=== PATIENT | female | born 1970 | race Caucasian/White ===

== ENCOUNTER → 2021-09-05 | Outpatient (CLI) | payer BC ==
[2021-09-05 12:46] LABS: Basophils # (A) 0.1 k/uL (0-0.2); Basophils % (A) 1 %; Eosinophils # (A) 0.3 k/uL (0-0.7); Eosinophils % (A) 5 %; HGB 13.2 gm/dL (11.4-16.0); Lymphocytes # (A) 1.7 k/uL (1.0-4.8); Lymphocytes % (A) 23 %; MCH 30.9 pg (25.0-35.0); MCHC 32.9 g/dL (31.0-37.0); MCV 93.9 fL (80.0-100.0); Monocytes # (A) 0.4 k/uL (0-1.0); Monocytes % (A) 6 %; Neutrophils # (A) 4.7 k/uL (1.3-7.7); Neutrophils % (A) 65 %; Platelet Count 232 k/uL (150-450); RBC 4.26 m/uL (3.80-5.40); RDW 12.3 % (11.5-15.5); WBC 7.3 k/uL (3.8-10.6)
== END | disposition home or self-care (01) ==
LOC: LABPAT 11:19
PROVIDERS: ATTEND Obstetrics & Gynecology
DX: Z01.818 Encounter for other preprocedural examination (principal); I49.1 Atrial premature depolarization; R00.1 Bradycardia, unspecified
CPT/HCPCS: 36415; 85025; 93005

== ENCOUNTER 2021-09-15 07:00 | Day surgery (SDC) | payer BC ==
[2021-09-13 16:05] VITALS: BMI 25.0
[~2021-09-15 07:00] MED LIST: DEXAMETHASONE SOD PHOSPHATE 4 MG/ML 1 ML VIAL IV ONE; HYDROmorphone 0.5 MG/0.5 ML SYRINGE IVP PRN; LACTATED RINGERS 1,000 ML IV SCH; MIDAZOLAM 2 MG/2 ML VIAL IV PRN; ONDANSETRON 4 MG/2 ML VIAL IVP ONE; Pre Op ABX Message 1 EACH MISC MISCELLANE ONE; SCOPOLAMINE 1.5MG/72HR PATCH TRANSDERM ONE
--- NOTE | 2021-09-15 07:34 | P.HPOB ---
History of Present Illness H&P Date: 09/15/21 Chief Complaint: menorrhagia 51 year old presents for D&C hysteroscopy and endometrial ablation with NovaSure. Review of Systems All systems: negative Constitutional: Denies chills, Denies fever Eyes: denies blurred vision, denies pain Ears, nose, mouth and throat: Denies headache, Denies sore throat Cardiovascular: Denies chest pain, Denies shortness of breath Respiratory: Denies cough Gastrointestinal: Denies abdominal pain, Denies diarrhea, Denies nausea, Denies vomiting Genitourinary: Denies dysuria, Denies hematuria Musculoskeletal: Denies myalgias Integumentary: Denies pruritus, Denies rash Neurological: Denies numbness, Denies weakness Psychiatric: Denies anxiety, Denies depression Endocrine: Denies fatigue, Denies weight change Past Medical History Additional Past Medical History / Comment(s): heavy, frequent periods History of Any Multi-Drug Resistant Organisms: None Reported Past Surgical History: Tubal Ligation Past Anesthesia/Blood Transfusion Reactions: No Reported Reaction Smoking Status: Former smoker Medications and Allergies Home Medications Medication Instructions Recorded Confirmed Type Ibuprofen 200 - 400 mg PO Q6H PRN 09/13/21 09/13/21 History Multivitamins, Thera [Multivitamin 1 tab PO DAILY 09/13/21 09/13/21 History (formulary)] [place]-3 Fatty Acids/Fish Oil [Fish 1 each PO DAILY 09/13/21 09/13/21 History Oil 1,000 mg Softgel] Turmeric Root Extract [Turmeric] 500 mg PO DAILY 09/13/21 09/13/21 History Allergies Allergy/AdvReac Type Severity Reaction Status Date / Time No Known Allergies Allergy Verified 09/14/21 12:38 Exam Osteopathic Statement: *. No significant issues noted on an osteopathic st ructural exam other than those noted in the History and Physical/Consult. Vital Signs Temp Pulse Resp BP Pulse Ox 09/15/21 07:26 97.5 F L 76 16 139/87 100 Intake and Output 09/14/21 09/15/21 09/15/21 22:59 06:59 14:59 Other: Weight 64.4 kg Heart: Regular rate and rhythm Lungs: Clear to auscultation bilaterally Abdomen: Soft, nontender Extremities: Negative Homans sign Assessment and Plan (1) Menorrhagia Current Visit: Yes Status: Acute Code(s): N92.0 - EXCESSIVE AND FREQUENT MENSTRUATION WITH REGULAR CYCLE SNOMED Code(s): 370794449 Plan: 1. D&C hysteroscopy and endometrial ablation with NovaSure
[2021-09-15] MEDS ORDERED: PROPOFOL 10 MG/ML 20 ML VIAL IV ONE (08:23)
[2021-09-15] MEDS ORDERED: LIDOCAINE 1% INJ 10MG/ML (20 ML MDV) ONE (08:23)
[2021-09-15] MEDS ORDERED: fentaNYL (PF) 50 MCG/ML 2 ML AMP ONE (08:23)
[2021-09-15] MEDS ORDERED: KETOROLAC 15 MG/ML 1 ML VIAL ONE (08:23)
[2021-09-15] MEDS ORDERED: MIDAZOLAM 2 MG/2 ML VIAL ONE (08:23)
--- NOTE | 2021-09-15 08:54 | P.OP ---
Date of Procedure: 09/15/21 Preoperative Diagnosis: 1. menorrhagia Postoperative Diagnosis: 1. menorrhagia Procedure(s) Performed: D&C, hysteroscopy, endometrial ablation was NovaSure Anesthesia: MAC Surgeon: Nikole Hoskins Estimated Blood Loss (ml): 2 IV fluids (ml): 500 Urine output (ml): 120 Pathology: other (Endometrial curettings) Condition: stable Disposition: PACU Operative Findings: Uterus sounded to 7 cm. Cavity length 5 cm, width 4.3 cm power 120 W for 72 seconds. Adequate ablation after NovaSure. Description of Procedure: Patient was taken the operating room where general anesthesia was obtained without difficulty. She is prepped and draped in normal sterile fashion dorsal lithotomy position was with significant concerns. Restrictive all urine. Weighted place and the Charnley and trailblazer was grasped with single-tooth tenaculum. The uterus sounded to 7 cm and the cervix 102 cm making Revealing 5 cm. Cervix is dilated to #8 Hegar dilator. Hysteroscopy was performed and both ostia visualized. Smooth contour of the uterus. Sharp curet was used to gently. A mature curettings. No pressure was introduced with the cannula to 5 cm, width 4.37 m per 120 W and time of ablation 72 seconds. The NovaSure instrument was removed and a hysteroscopy was again performed. Adequate ablation was noted. All instrument removed from the vagina. Patient on procedure well, sponge and instrument counts correct 2. She was taken to recovery in stable condition.
--- NOTE | 2021-09-15 08:58 | P.OP ---
Date of Procedure: 09/15/21 Preoperative Diagnosis: 1. menorrhagia Postoperative Diagnosis: 1. menorrhagia Procedure(s) Performed: D&C, hysteroscopy, endometrial ablation with NovaSure Anesthesia: MAC Surgeon: Nikole Hoskins Estimated Blood Loss (ml): 2 IV fluids (ml): 500 Urine output (ml): 120 Pathology: other (Other major curettings) Condition: stable Disposition: PACU Operative Findings: Uterus sounded to 7 cm. Cavity length was 5 cm, width 4.3 cm, power 120 W, time of ablation 72 seconds. Adequate ablation after NovaSure. Description of Procedure: Patient is taken the operating room where general anesthesia was obtained without difficulty. She was prepped and draped in normal sterile fashion dorsal lithotomy position, legs placed in the candy cane stirrups. Bladder was drained of all urine. Weighted speculum placed in the vagina and the anterior lip the cervix was grasped with serial tooth tenaculum. The uterus sounded to 7 cm and the cervix under 2 cm making the cavity length 5 cm. The cervix was dilated to #8 Hegar dilator. Hysteroscopy was then performed. Both ostia were visualized and there was a smooth contour of the uterus. Sharp curet was then gently used to obtain endometrial curettings. The NovaSure was introduced into the uterus with a cavity length of 5 cm, width 4.3 cm. after cavity assessment was passed, the time of ablation was 72 seconds at 120 W. Hysteroscopy was again performed and adequate ablation was noted. All instruments removed from the vagina. Patient tolerated the procedure well, sponge and instrument counts were correct 2 and she was taken to recovery in stable condition.
[2021-09-15 09:03] VITALS: TEMP 96.8
[2021-09-15] MEDS ORDERED: LACTATED RINGERS 1,000 ML IV ONE (09:23)
[2021-09-15 09:31] VITALS: RESP 16
[2021-09-15 10:38] VITALS: BP 159/73
[2021-09-15 11:04] VITALS: PULSE 49
== END 2021-09-15 11:43 | disposition home or self-care (01) ==
LOC: OR 07:00 → MERGE 08:15 → OR 11:43
PROVIDERS: ATTEND Obstetrics & Gynecology
DX: N92.0 Excessive and frequent menstruation with regular cycle (principal); Z98.51 Tubal ligation status; Z87.891 Personal history of nicotine dependence; N84.0 Polyp of corpus uteri
CPT/HCPCS: 81025; 88305; 58563; J2250; J1100; J2405; J2001; J3010; J1885; J2704; J1790

== ENCOUNTER → 2023-07-04 | Outpatient (CLI) | payer SELFPAY ==
[2023-07-04 20:32] LABS: ALT 21 U/L (8-44); AST 22 U/L (13-35); Albumin 4.8 d/dL (3.8-4.9); Alkaline Phosphatase 59 U/L (41-126); BUN/Creat Ratio 18.11 Ratio (12.00-20.00); Blood Urea Nitrogen 16.3 mg/dL (9.0-27.0); Calcium 9.8 mg/dL (8.7-10.3); Carbon Dioxide 24.9 mmol/L (21.6-31.8); Chloride 105 mmol/L (96-109); Glucose 88 mg/dL (70-110); Potassium 4.2 mmol/L (3.5-5.5); Sodium 140 mmol/L (135-145); Total Bilirubin 0.3 mg/dL (0.3-1.2); Total Protein 6.8 d/dL (6.2-8.2)
[2023-07-04 21:19] LABS: HCT 41.3 % (37.2-46.3); HGB 14.1 d/dL (12.0-15.0); MCH 31.3 pg (27.0-32.0); MCHC 34.1 d/dL (32.0-37.0); MCV 91.8 FL (80.0-97.0); Mean Platelet Volume 12.9 FL (9.5-12.2); NRBC Per 100 WBC 0 X 10*3/uL (0.00-0.01); Platelet Count 229 X 10*3/uL (140-440); RDW 12.2 % (11.5-14.5); WBC 8.98 X 10*3/uL (4.50-10.00)
[2023-07-04 22:20] LABS: Appearance,Urine Clear (Clear); Bilirubin,Urine Negative (Negative); Blood,Urine Negative (Negative); Color,Urine Yellow (Yellow); Ketones,Urine Trace (Negative); Nitrite,Urine Negative (Negative); PH, Urine 5.5; Specific Gravity,Urine 1.025 (1.001-1.030); Urobilinogen,Urine 0.2 E.U./DL
== END | disposition home or self-care (01) ==
LOC: LABPAT 15:38
PROVIDERS: ATTEND Urology
DX: Z01.812 Encounter for preprocedural laboratory examination (principal); N81.9 Female genital prolapse, unspecified; N39.3 Stress incontinence (female) (male); R35.0 Frequency of micturition
CPT/HCPCS: 80053; 81003; 85027; 87086

== ENCOUNTER 2023-07-10 13:23 | Day surgery (SDC) | payer BC ==
--- NOTE | 2023-07-09 09:16 | P.GSHP ---
History of Present Illness H&P Date: 07/09/23 53-year-old female with stress urinary incontinence and a grade 1-2 cystocele comes for a pubovaginal sling (lynx) and anterior repair. She has a classic stress urinary incontinence. She wears 4-5 pads per day. She has leaks with coughing lifting sneezing and exercise. There've been no urinary tract infections. She has had a NovaSure ablation and a D&C. On examination she has a mobile urethra with mild cystocele. She has been given treatment options. She has failed calyx her size. She comes for a pubovaginal sling risks and complications outlined including infection bleeding pain injury retention dyspareunia erosion the mesh controversy. - Constitutional Constitutional: Denies chills, Denies fever - EENT Eyes: denies blurred vision, denies pain Ears, nose, mouth and throat: Denies headache, Denies sore throat - Cardiovascular Cardiovascular: Denies chest pain, Denies shortness of breath - Respiratory Respiratory: Denies cough, Denies 7 - Gastrointestinal Gastrointestinal: Denies abdominal pain, Denies diarrhea, Denies nausea, Denies vomiting - Genitourinary (Female) Genitourinary: Denies dysuria, Denies hematuria - Genitourinary (Male) Genitourinary: Denies dysuria, Denies hematuria - Musculoskeletal Musculoskeletal: Denies myalgias - Integumentary Integumentary: Denies pruritus, Denies rash - Neurological Neurological: Denies numbness, Denies weakness - Psychiatric Psychiatric: Denies anxiety, Denies depression - Endocrine Endocrine: Denies fatigue, Denies weight change Past Medical History Additional Past Medical History / Comment(s): urinary incontinence which causes skin irritation @times-nothing currently History of Any Multi-Drug Resistant Organisms: None Reported Past Surgical History: Tubal Ligation, Uterine Ablation Additional Past Surgical History / Comment(s): D & C Past Anesthesia/Blood Transfusion Reactions: No Reported Reaction Additional Past Anesthesia/Blood Transfusion Reaction / Comment(s): slow to wake up after ablation Smoking Status: Former smoker Medications and Allergies Home Medications Medication Instructions Recorded Confirmed Type Multivitamins, Thera [Multivitamin 1 tab PO DAILY 09/13/21 07/02/23 History (formulary)] [place]-3 Fatty Acids/Fish Oil [Fish 1 each PO DAILY 09/13/21 07/02/23 History Oil 1,000 mg Softgel] Turmeric Root Extract [Turmeric] 500 mg PO DAILY 09/13/21 07/02/23 History Clotrimazole/Betameth Cream 1 applic TOPICAL DIRECTED PRN 07/03/23 07/03/23 History [Lotrisone] Cyanocobalamin (Vitamin B-12) 1,000 mcg PO DAILY 07/03/23 07/03/23 History [Vitamin B-12] Elderberry Fruit [Elderberry] 350 mg PO DAILY 07/03/23 07/03/23 History Allergies Allergy/AdvReac Type Severity Reaction Status Date / Time No Known Allergies Allergy Verified 07/02/23 16:05 Surgical - Exam - General well developed, well nourished, no distress - Eyes normal ocular movement, no icteric - ENT no hearing loss, no congestion - Neck no masses, trachea midline - Respiratory normal respiratory effort, clear to auscultation - Abdomen Abdomen: soft, non tender, no guarding, no rigid, no rebound - Genitourinary Hypermobile urethra with stress incontinence, grade 1-2 cystocele - Integumentary no rash, no abnormal pigmentation - Neurologic no disoriented, no combative - Psychiatric oriented to time, oriented to person, oriented to place, speech is normal, memory intact Assessment and Plan Assessment: Impression; LIANE, cystocele Plan: pubovaginal sling, anterior repair.
[~2023-07-10 13:23] MED LIST changes: +AMPICILLIN 1,000 MG in SODIUM CHLORIDE 0.9% 50 ML IVPB PRN; +GENTAMICIN 80 MG in SODIUM CHLORIDE 0.9% 100 ML IVPB PRN; +LIDOCAINE 1% (10MG/ML) FOR IV START INTRADERMA PRN; -MIDAZOLAM 2 MG/2 ML VIAL IV PRN; -Pre Op ABX Message 1 EACH MISC MISCELLANE ONE; -SCOPOLAMINE 1.5MG/72HR PATCH TRANSDERM ONE; +droPERidol 5 MG/2 ML VIAL IVP ONE
[2023-07-10] MEDS ORDERED: SCOPOLAMINE 1 MG/72 HR PATCH TRANSDERM ONE (14:10)
[2023-07-10] MEDS ORDERED: MIDAZOLAM 2 MG/2 ML VIAL ONE (15:53)
[2023-07-10] MEDS ORDERED: GLYCOPYRROLATE 0.2 MG/ML 2 ML VIAL ONE (15:53)
[2023-07-10] MEDS ORDERED: HYDROmorphone (PF) 1 MG/ML ONE (15:53)
[2023-07-10] MEDS ORDERED: fentaNYL (PF) 50 MCG/ML 2 ML AMP ONE (15:53)
[2023-07-10] MEDS ORDERED: SUCCINYLCHOLINE CHLORIDE 200 MG/10 ML VIAL IV ONE (15:53)
[2023-07-10] MEDS ORDERED: PROPOFOL 10 MG/ML 20 ML VIAL IV ONE (15:53)
[2023-07-10] MEDS ORDERED: VASOPRESSIN 20 UNIT/ML 1 ML VIAL SQ ONE (16:22)
[2023-07-10] MEDS ORDERED: BACITRACIN ZINC 500 UNIT/GM OINT 28.4 GM TUBE TOPICAL ONE (16:32)
[2023-07-10] MEDS ORDERED: LACTATED RINGERS 1,000 ML IV ONE (16:39)
[2023-07-10] MEDS ORDERED: ONDANSETRON 4 MG/2 ML VIAL IVP PRN (16:41)
[2023-07-10] MEDS ORDERED: KETOROLAC 15 MG/ML 1 ML VIAL IVP PRN (16:41)
[2023-07-10] MEDS ORDERED: HYDROcodone/APAP 5-325MG 1 EACH TAB PO PRN (16:44)
[2023-07-10] MEDS ORDERED: DEXTROSE 5%-0.45% NACL 1,000 ML IV SCH (16:45)
--- NOTE | 2023-07-10 16:49 | P.OP ---
Date of Procedure: 07/10/23 Preoperative Diagnosis: Stress urinary incontinence cystocele Postoperative Diagnosis: Same Procedure(s) Performed: Pubovaginal sling (lynx), cystoscopy, anterior repair Anesthesia: ITZELA Surgeon: Carlos Purvis Estimated Blood Loss (ml): 100 Pathology: none sent Condition: stable Disposition: PACU Indications for Procedure: Patient is 53. She has documented stress incontinence. She is a small cystocele. She comes for pubovaginal sling for her stress incontinence and a cystocele repair Description of Procedure: Patient brought operating suite. She is given a general anesthetic. He's placed lithotomy position with a sterile prep and drape. The labia are sewn laterally with 2-0 silk. All he Is introduced sterilely. The anterior vaginal mucosa was elevated off the submucosa with 10 mL of a mixture of 20 g of Pitressin and 100 mL of saline. A midline suburethral incision is made. Dissect lateral the bladder neck bilaterally. The cystocele is dissected off vagina and reduced. I then make 2 incisions at the corner the pubis. I passed the sling introducers retropubically into the vaginal space bilaterally. I then perform cystoscopy to make sure there is no injury to the bladder and there is none. Amaya catheters replaced. The Lynx graft is attached to the introducers and pull back suprapubically. It lay at the bladder neck nicely. I then close the cystocele with 2-0 Vicryl approximating the perivaginal tissue bilaterally. I then closed the vagina with 4-0 Vicryl. The redundant sheathing on the graft was pulled off. The redundant graft was excised at the appropriate incisions. The suprapubic incision was closed with 4-[address] The urine and Amaya catheters irrigated and is clear. The patient is awakened and returned recovery room good condition. Blood loss is undergone a 50 mL. She tolerated procedure well be placed in the hospital postoperatively.
[2023-07-11] MEDS ORDERED: IBUPROFEN 600 MG TAB PO PRN (15:23)
[2023-07-11 16:11] VITALS: BP 137/88; PULSE 77; RESP 18; TEMP 98.6
== END 2023-07-11 16:30 | disposition home or self-care (01) ==
LOC: OR 13:23 → 4FBP 16:55 → OR 07-11 16:30
PROVIDERS: ATTEND Urology
DX: N81.10 Cystocele, unspecified (principal); N39.3 Stress incontinence (female) (male); Z79.1 Long term (current) use of non-steroidal anti-inflammatories (NSAID); Z87.891 Personal history of nicotine dependence; Z78.9 Other specified health status
CPT/HCPCS: 57288; 57240; C1771; J2250; J0330; J1100; J2405; J3010; J1580; J0290; J1170; J1885; J2704

== ENCOUNTER 2023-07-24 08:51 | Day surgery (SDC) | payer BC ==
--- NOTE | 2023-07-23 12:29 | P.GSHP ---
History of Present Illness H&P Date: 07/23/23 53-year-old female who approximately 10 days ago underwent a pubovaginal sling for stress urinary incontinence with an anterior repair has had problems urinating postoperatively with retention and incomplete urination. She is otherwise healed nicely. She comes for loosening of her pubovaginal sling. This and complications including infection of the graft recurrence of her stress incontinence continued retention and been explained and understood and accepted - Constitutional Constitutional: Denies chills, Denies fever - EENT Eyes: denies blurred vision, denies pain Ears, nose, mouth and throat: Denies headache, Denies sore throat - Cardiovascular Cardiovascular: Denies chest pain, Denies shortness of breath - Respiratory Respiratory: Denies cough, Denies 7 - Gastrointestinal Gastrointestinal: Denies abdominal pain, Denies diarrhea, Denies nausea, Denies vomiting - Genitourinary (Female) Genitourinary: Denies dysuria, Denies hematuria - Genitourinary (Male) Genitourinary: Denies dysuria, Denies hematuria - Musculoskeletal Musculoskeletal: Denies myalgias - Integumentary Integumentary: Denies pruritus, Denies rash - Neurological Neurological: Denies numbness, Denies weakness - Psychiatric Psychiatric: Denies anxiety, Denies depression - Endocrine Endocrine: Denies fatigue, Denies weight change Past Medical History Additional Past Medical History / Comment(s): urinary incontinence which causes skin irritation @times-nothing currently now having urine retention after pubo/vag sling britney has a catheter in place History of Any Multi-Drug Resistant Organisms: None Reported Past Surgical History: Tubal Ligation, Uterine Ablation Additional Past Surgical History / Comment(s): D & C, pubo vaginal sling Past Anesthesia/Blood Transfusion Reactions: No Reported Reaction, Postoperative Nausea & Vomiting (PONV) Additional Past Anesthesia/Blood Transfusion Reaction / Comment(s): slow to wake up after ablation, after sling surg had low temp, shivering,low heart rate, nausea Smoking Status: Former smoker - Past Family History Father Family Medical History: Chest Pain / Angina, Congestive Heart Failure (CHF), Diabetes Mellitus Medications and Allergies Home Medications Medication Instructions Recorded Confirmed Type Multivitamins, Thera [Multivitamin 1 tab PO DAILY 09/13/21 07/22/23 History (formulary)] [place]-3 Fatty Acids/Fish Oil [Fish 1 each PO DAILY 09/13/21 07/22/23 History Oil 1,000 mg Softgel] Turmeric Root Extract [Turmeric] 500 mg PO DAILY 09/13/21 07/22/23 History Clotrimazole/Betameth Cream 1 applic TOPICAL DIRECTED PRN 07/03/23 07/22/23 History [Lotrisone] Cyanocobalamin (Vitamin B-12) 1,000 mcg PO DAILY 07/03/23 07/22/23 History [Vitamin B-12] Elderberry Fruit [Elderberry] 350 mg PO DAILY 07/03/23 07/22/23 History Ketorolac [Toradol] 10 mg PO Q6HR PRN #10 tab 07/11/23 07/22/23 Rx ALPRAZolam [Xanax] 0.25 mg PO Q6H PRN 07/22/23 07/22/23 History Allergies Allergy/AdvReac Type Severity Reaction Status Date / Time No Known Allergies Allergy Verified 07/22/23 14:41 Surgical - Exam - General well developed, well nourished, no distress - Eyes normal ocular movement, no icteric - ENT no hearing loss, no congestion - Neck no masses, trachea midline - Respiratory normal respiratory effort, clear to auscultation - Abdomen Abdomen: soft, non tender, no guarding, no rigid, no rebound - Integumentary no rash, no abnormal pigmentation - Neurologic no disoriented, no combative - Psychiatric oriented to time, oriented to person, oriented to place, speech is normal, memory intact Assessment and Plan Assessment: Impression: Urine retention status post pubovaginal sling with anterior repair. Recommendations: Loosening of pubovaginal sling with cystoscopy
[~2023-07-24 08:51] MED LIST changes: -GENTAMICIN 80 MG in SODIUM CHLORIDE 0.9% 100 ML IVPB PRN; +GENTAMICIN IN NACL ISO-OSM PMX 80 MG in SALINE 1 100ML.BAG IVPB PRN; -LIDOCAINE 1% (10MG/ML) FOR IV START INTRADERMA PRN; -droPERidol 5 MG/2 ML VIAL IVP ONE
[2023-07-24] MEDS ORDERED: LIDOCAINE 1% (10MG/ML) FOR IV START INTRADERMA ONE (09:41)
[2023-07-24] MEDS ORDERED: SCOPOLAMINE 1 MG/72 HR PATCH TRANSDERM ONE (10:02)
[2023-07-24] MEDS ORDERED: fentaNYL (PF) 50 MCG/ML 2 ML AMP ONE (10:43)
[2023-07-24] MEDS ORDERED: KETOROLAC 15 MG/ML 1 ML VIAL ONE (10:43)
[2023-07-24] MEDS ORDERED: MIDAZOLAM 2 MG/2 ML VIAL ONE (10:43)
[2023-07-24] MEDS ORDERED: LIDOCAINE 2% INJ 20 MG/ML (2 ML VIAL) ONE (10:43)
[2023-07-24] MEDS ORDERED: PROPOFOL 10 MG/ML 20 ML VIAL IV ONE (10:43)
[2023-07-24] MEDS ORDERED: LIDOCAINE 1%-EPI 1:100,000 50 ML VIAL SQ ONE (11:01)
[2023-07-24 11:29] VITALS: TEMP 97.1
--- NOTE | 2023-07-24 11:30 | P.OP ---
Date of Procedure: 07/24/23 Preoperative Diagnosis: Urine retention post pubovaginal sling Postoperative Diagnosis: Same Procedure(s) Performed: Loosening a pubovaginal sling Anesthesia: AHLEY Surgeon: Carlos Purvis Estimated Blood Loss (ml): 5 Pathology: none sent Condition: stable Disposition: PACU Indications for Procedure: Patient is 10 days post pubovaginal sling and anterior repair. She has had persistent incomplete bladder and in. She comes for loosening for her pubovaginal sling Description of Procedure: The patient is brought to the operating suite. She is given a general anesthetic. She's been given preoperative antibiotics. She's placed lithotomy position with a sterile prep and drape. The Amaya catheter previously been removed. A vaginal speculum was introduced into the vagina. I used 2% Xylocaine with epinephrine to elevate submucosa off the mucosa. The previous midline vaginal stitch is identified and removed. The vagina is open. Sling is identified and is very tight against the proximal urethra. With a hemostat I grasp it and pull it forward with difficulty. I'm able to loosen up. I reassessed and decided to cut the sling suburethrally the urethra is not any longer compressed. I place a catheter in the bladder and irrigated there is no bleedting. I re-do the anterior repair with 2-0 Vicryl. A close vagina with 2- 0 Vicryl. There is no bleeding. The patient is awakened and returned recovery room good condition. Blood loss is probably 5 mL.
[2023-07-24] MEDS ORDERED: LACTATED RINGERS 1,000 ML IV ONE (11:42)
[2023-07-24 13:17] VITALS: BP 131/74; PULSE 79; RESP 16
== END 2023-07-24 13:52 | disposition home or self-care (01) ==
LOC: OR 08:51
PROVIDERS: ATTEND Urology
DX: N39.3 Stress incontinence (female) (male) (principal); Z98.890 Other specified postprocedural states; Z87.891 Personal history of nicotine dependence; Z83.3 Family history of diabetes mellitus; Z82.49 Family history of ischemic heart disease and other diseases of the circulatory system; Z79.899 Other long term (current) drug therapy
CPT/HCPCS: 57288; J1580; J2250; J1100; J2405; J3010; J0290; J1885; J2704; J2001